=== PATIENT | female | born 1990 | race Caucasian/White ===

== ENCOUNTER 2021-09-04 20:07 | Outpatient (REF) | payer OTHER, SELFPAY ==
[2021-09-04 21:40] LABS: Clarity Clear (Clear); Specific Gravity 1.012 (1.005-1.025)
[2021-09-04 21:41] LABS: Bilirubin Color Interference (Negative); Blood Color Interference (Negative); Glucose Color Interference mg/dL (Negative); Ketones Color Interference mg/dL (Negative); Leukocyte Esterase Color Interference (Negative); Nitrite Color Interference (Negative); Urobilinogen Color Interference EU/dL (Up TO 0.2)
[2021-09-04 21:44] LABS: Bacteria Few HPF (Negative); C & S Indicated? C&S Done As Ordered; Casts Negative LPF (Negative); Crystals Negative HPF (Negative); Epithelial Cells Few HPF (Negative); Mucus Negative (Negative); Other Cells Few Renal (Negative); RBC 20-50 HPF (0-2); WBC 20-50 HPF (0-5)
== END 2021-09-04 20:08 | disposition home or self-care (01) ==
LOC: LBN 20:07
PROVIDERS: Visit Provider Physician Assistant Medical
DX: R30.9 Painful micturition, unspecified (principal)
CPT/HCPCS: 81003; 81015; 87086